=== PATIENT | female | born 1970 | race Caucasian/White ===

== ENCOUNTER 2017-06-06 11:17 | Emergency (ER) | payer BC ==
[~2017-06-06] VITALS: Ht 157.5 cm; Wt 49.9 kg
[2017-06-06] MEDS ORDERED: CLEOCIN HCL300 MG PO (13:27)
[2017-06-06] MEDS ORDERED: CIPRO500 MG PO (13:27)
== END 2017-06-06 13:58 | disposition home or self-care (01) ==
LOC: ER 11:17
DX: S51.851A Open bite of right forearm, initial encounter (principal); L03.113 Cellulitis of right upper limb; W54.0XXA Bitten by dog, initial encounter; Y93.89 Activity, other specified; Y92.89 Other specified places as the place of occurrence of the external cause; Y99.8 Other external cause status